=== PATIENT | male | born 1985 | race African-American/Black ===

== ENCOUNTER 2016-11-04 09:58 | Emergency (ER) | payer SELFPAY ==
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
[~2016-11-04 09:58] MED LIST: VOLTAREN75 MG PO
== END 2016-11-04 14:02 | disposition home or self-care (01) ==
LOC: CED 09:58 → CFTX 09:58
DX: S00.83XA Contusion of other part of head, initial encounter (principal); F17.210 Nicotine dependence, cigarettes, uncomplicated; Z23 Encounter for immunization; Y04.0XXA Assault by unarmed brawl or fight, initial encounter; Y92.009 Unspecified place in unspecified non-institutional (private) residence as the place of occurrence of the external cause
CPT/HCPCS: 70360; 70450; 70486; 71020; 90471; 90715; 99284